=== PATIENT | female | born 1975 | race Two or more races ===

== ENCOUNTER 2020-01-14 08:04 | Day surgery (SDC) | payer OTHER | END 2020-01-14 13:30 | disposition home or self-care (01) | LOC: AMB-ENDOS 08:04 | PROVIDERS: ATTEND Colon & Rectal Surgery | DX: D12.0 Benign neoplasm of cecum (principal); Z86.010 Personal history of colon polyps; Z20.828 Contact with and (suspected) exposure to other viral communicable diseases; K64.1 Second degree hemorrhoids ==

== ENCOUNTER 2021-07-19 12:00 | Inpatient (IN) | payer OTHER ==
[~2021-07-19] VITALS: Ht 160 cm; Wt 65.8 kg
[2021-07-25] MEDS ORDERED: PROAIR HFA8.5 GM (13:05)
[2021-07-25] MEDS ORDERED: FLOVENT HFA12 G1 (13:05)
== END 2021-07-27 11:58 | disposition home or self-care (01) | DRG 331 ==
LOC: O/R 07-25 09:12 → SURH 07-25 10:00
PROVIDERS: ADMIT Colon & Rectal Surgery; ATTEND Colon & Rectal Surgery
PROC: 07BB4ZZ Excision of Mesenteric Lymphatic, Percutaneous Endoscopic Approach (ICD-10-PCS; 2021-07-25)
PROC: 0DTF4ZZ Resection of Right Large Intestine, Percutaneous Endoscopic Approach (ICD-10-PCS; principal; 2021-07-25 13:10)
DX: C18.0 Malignant neoplasm of cecum (principal); D12.1 Benign neoplasm of appendix; J45.20 Mild intermittent asthma, uncomplicated; Z86.010 Personal history of colon polyps; Z80.0 Family history of malignant neoplasm of digestive organs; Z20.822 Contact with and (suspected) exposure to COVID-19